=== PATIENT | female | born 1990 | race Hispanic/Latino ===

== ENCOUNTER 2018-07-30 18:36 | Emergency (ER) | payer SELFPAY ==
[2018-07-30] MEDS ORDERED: Cephalexin 500 MG CAP ONE (18:50)
[2018-07-30] MEDS ORDERED: Bacitracin Zinc 1 Packet ONE (18:50)
[2018-07-30] MEDS ORDERED: Adacel (T-DAP) 0.5 ML SYRINGE ONE (18:50)
== END 2018-07-30 19:00 | disposition home or self-care (01) ==
LOC: BURERS 18:36
DX: L02.413 Cutaneous abscess of right upper limb (principal)
CPT/HCPCS: 90471; 90715

== ENCOUNTER 2019-01-19 12:55 | Emergency (ER) | payer SELFPAY ==
[2019-01-19] MEDS ORDERED: Ondansetron ODT 4 MG TAB ONE (13:19)
== END 2019-01-19 13:20 | disposition home or self-care (01) ==
LOC: BURERS 12:55
DX: R11.2 Nausea with vomiting, unspecified (principal)
CPT/HCPCS: 99283; Q0162

== ENCOUNTER 2019-03-02 12:30 | Emergency (ER) | payer SELFPAY ==
[2019-03-02] MEDS ORDERED: Azithromycin 250 MG TAB ONE (13:11)
[2019-03-02] MEDS ORDERED: Benzonatate 100 MG CAP ONE (13:11)
--- NOTE | 2019-03-02 19:39 | RAD ---
CHEST TWO VIEWS: 03/02/19 Comparison is made with a 09/16/17 study. The heart is normal in size and the lungs are clear. No acute infiltrate or effusion was seen. There is no sign of pneumonia. The bony structures were unremarkable. IMPRESSION: No acute thoracic finding. POS: HOME
== END 2019-03-02 13:19 | disposition home or self-care (01) ==
LOC: BURERS 12:30
DX: J20.9 Acute bronchitis, unspecified (principal)
CPT/HCPCS: 71046

== ENCOUNTER 2020-12-11 19:58 | Emergency (ER) | payer MEDICAID, SELFPAY ==
[2020-12-11] MEDS ORDERED: Ketorolac Tromethamine 30 MG/ML VIAL ONE (21:32)
[2020-12-11] MEDS ORDERED: Aspirin Chewable 81 MG TAB ONE (21:32)
[2020-12-11 22:00] LABS: #Basophils 0.1 thou/uL (0.0-0.2); #Eosinphils 0.2 thou/uL (0.0-0.7); #Lymphocytes 2.7 thou/uL (1.20-3.40); #Monocytes 0.5 thou/uL (0.11-0.59); #Neutrophils 3.6 thou/uL (1.40-6.50); %Basophils 1.3 % (0.0-1.0); %Eosinophils 3.1 % (0.0-10.0); %Lymphocytes 37.5 % (21.0-51.0); %Monocytes 7.6 % (0.0-10.0); %Neutrophils 50.5 % (42.0-75.0); Hemoglobin 13.6 g/dL (12.0-16.0); Mean Corpuscular HGB CONC 33.3 g/dL (32.0-36.0); Mean Platelet Volume 7.4 fL (7.4-10.4); Platelet Count 278 thou/uL (130-400); RBC Distribution Width 12.2 % (11.5-14.5); Red Blood Cell (RBC) Count 4.55 mill/uL (4.20-5.40); White Blood Cell (WBC) Count 7.1 thou/uL (4.8-10.8)
[2020-12-11 22:12] LABS: BHCG - Serum Negative (NEGATIVE); Pregs Control Background? CLEAR/WHITE (CLR/WHITE); Pregs Control Bar Appear? YES (CONTROL BAR)
[2020-12-11 22:13] LABS: ALT (SGPT) 29 U/L (8-55); AST (SGOT) 12 U/L (5-34); Albumin 4.2 g/dL (3.5-5.0); Alkaline Phosphatase 94 U/L (40-110); Anion Gap 16 mmol/L (10-20); BUN (Urea Nitrogen) 17 mg/dL (7.0-18.7); Bilirubin, Total 0.3 mg/dL (0.2-1.2); Calc. Creatinine Clearance 0 mL/min (70-130); Calcium 8.7 mg/dL (7.8-10.44); Carbon Dioxide 25 mmol/L (22-29); Chloride 102 mmol/L (98-107); Glucose 118 mg/dL (70-105); Lipase 36 U/L (8-78); Potassium 3.9 mmol/L (3.5-5.1); Protein, Total 7.2 g/dL (6.0-8.3); Sodium 139 mmol/L (136-145)
== END 2020-12-11 22:27 | disposition home or self-care (01) ==
LOC: BURERS 19:58
DX: R07.89 Other chest pain (principal); F17.200 Nicotine dependence, unspecified, uncomplicated
CPT/HCPCS: 36415; 71045; 80053; 83690; 84484; 84703; 85025; 85379; 93005; 96372; J1885